=== PATIENT | male | born 1935 | race Caucasian/White ===

== ENCOUNTER 2020-09-12 15:56 | Inpatient (IN) | payer MEDICARE, OTHER ==
[~2020-09-12] VITALS: Ht 157.5 cm; Wt 68.0 kg
[2020-09-12 17:12] LABS: HEMOGLOBIN 14.8 gm/dl (14.0-17.5); RED BLOOD COUNT 4.39 M/UL (4.20-5.50); WHITE BLOOD COUNT 6.7 K/UL (4.5-11.0)
[2020-09-13 04:07] LABS: HEMOGLOBIN 13.6 gm/dl (14.0-17.5); RED BLOOD COUNT 4.01 M/UL (4.20-5.50); WHITE BLOOD COUNT 6.1 K/UL (4.5-11.0)
[2020-09-13] MEDS ORDERED: BREO ELLIPTA 11 EACH PO (10:31)
[2020-09-13] MEDS ORDERED: LEVOTHYROXINE75 MCG PO (10:32)
[2020-09-13] MEDS ORDERED: PRAVASTATIN SOD40 MG PO (10:32)
[2020-09-13] MEDS ORDERED: ASPIRIN EC81 MG PO (10:33)
[2020-09-13] MEDS ORDERED: FLOMAX 0.4 MG0.4 MG PO (10:33)
[2020-09-13] MEDS ORDERED: ISOSORBIDE MONO30 MG PO (10:34)
[2020-09-13] MEDS ORDERED: DOCUSATE SODIU100 MG PO (10:36)
[2020-09-13] MEDS ORDERED: VITAMIN C250 MG PO (10:37)
[2020-09-13] MEDS ORDERED: ARTHRITIS PAIN650 M1 PO (10:37)
--- NOTE | 2020-09-14 02:20 | NUR ---
PHAMRACY MADE AWARE OF ZITHROMAX BEING ADMINISTERED 4 HOURS LATE. PHAMRACIST TOMASZ STATED NO NEED TO ADJUST FUTURE ADMINISTRATION TIMES. WCTM
[2020-09-14 04:16] LABS: HEMOGLOBIN 13.9 gm/dl (14.0-17.5); RED BLOOD COUNT 4.23 M/UL (4.20-5.50); WHITE BLOOD COUNT 10.4 K/UL (4.5-11.0)
[2020-09-16 05:05] LABS: HEMOGLOBIN 14.1 gm/dl (14.0-17.5); RED BLOOD COUNT 4.18 M/UL (4.20-5.50)
[2020-09-16 05:13] LABS: WHITE BLOOD COUNT 7.3 K/UL (4.5-11.0)
[2020-09-16 05:26] LABS: BUN/CREATININE RATIO 34 (0-10)
--- NOTE | 2020-09-16 10:01 | NUR ---
1000 ATTEMPTED TO CALL FAMILY BACK NO ANSWER
[2020-09-17 05:12] LABS: HEMOGLOBIN 14.2 gm/dl (14.0-17.5); RED BLOOD COUNT 4.28 M/UL (4.20-5.50); WHITE BLOOD COUNT 8.7 K/UL (4.5-11.0)
[2020-09-17 05:31] LABS: BUN/CREATININE RATIO 34 (0-10)
[2020-09-18 05:24] LABS: HEMOGLOBIN 14.3 gm/dl (14.0-17.5); RED BLOOD COUNT 4.28 M/UL (4.20-5.50); WHITE BLOOD COUNT 8.9 K/UL (4.5-11.0)
--- NOTE | 2020-09-18 21:41 | NUR ---
UPDATED PT DAUGHTER VIA PHONE. PT DAUGHTER AWARE OF CURRENT POC, VS, AND WAIT FOR ICU BED AT [facility]. ALL QUESTIONS ANSWERED.
--- NOTE | 2020-09-18 22:06 | NUR ---
[facility] CALLED STATING THERE IS STILL NOT AN OPEN BED FOR PT. REPORTS SHE WILL CALL AGAIN THROUGH THE NIGHT WITH UPDATES.
[2020-09-19 05:03] LABS: HEMOGLOBIN 13.7 gm/dl (14.0-17.5); RED BLOOD COUNT 4.15 M/UL (4.20-5.50); WHITE BLOOD COUNT 7.5 K/UL (4.5-11.0)
[2020-09-19 05:23] LABS: BUN/CREATININE RATIO 39 (0-10)
--- NOTE | 2020-09-19 05:57 | NUR ---
[facility] CALLED, STILL NO BED AVAILABLE AT [facility].
--- NOTE | 2020-09-19 06:05 | NUR ---
CALLED AND UPDATED PT DAUGHTER ON POC, CURRENT LABS, VS, BIPAP SETTINGS, AND WAIT STATUS AT [facility]. ALL QUESTIONS ANSWERED.
--- NOTE | 2020-09-19 10:34 | NUR ---
DR PATTERSON NOTIFIED OF ABG RESULTS, NEW ORDERS RECEIVED
--- NOTE | 2020-09-19 22:37 | NUR ---
2029 ATTEMPTED TO CALL PT DAUGHTER TO UPDATE. NO ANSWER. 2099 PT RHYTHM CHANGED FROM NSR TO TACHY BIGEMINY, BP 92/48. DAVID NOTIFIED AND AWARE. EKG OBTAINED. ORDERS RECEIVED FOR 500ML NS BOLUS AND MAG LEVEL TO BE CHECKED. ORDERS PLACED.
--- NOTE | 2020-09-20 05:24 | NUR ---
09/19 2200 SPOKE WITH [facility], NO BED AVAILABLE YET. 09/20 0430 SPOKE WITH [facility], NO BED AVAILABLE.
--- NOTE | 2020-09-20 05:54 | NUR ---
0550 CALLED AND UPDATED PT DAUGHTER ON POC, VS, CURRENT VENT SETTINGS, AND WAIT TIME FOR BED AT [facility]. ALL QUESTIONS ANSWERED.
[2020-09-21 05:16] LABS: HEMOGLOBIN 13.9 gm/dl (14.0-17.5); RED BLOOD COUNT 4.16 M/UL (4.20-5.50)
[2020-09-21 05:17] LABS: WHITE BLOOD COUNT 15.7 K/UL (4.5-11.0)
[2020-09-21 05:40] LABS: BUN/CREATININE RATIO 37 (0-10)
== END 2020-09-21 16:30 | disposition short-term general hospital (02) | DRG 208 ==
LOC: ER1 15:56 → CCU 19:15 → M/S 19:15 → CDU 19:15 → PROG CARE 09-13 10:58 → M/S 09-13 19:39 → PROG CARE 09-15 13:59 → CCU 09-15 23:40
PROVIDERS: Internal Medicine; Internal Medicine Pulmonary Disease; Physician Assistant; ADMIT Internal Medicine
PROC: 5A0945A Assistance with Respiratory Ventilation, 24-96 Consecutive Hours, High Flow/Velocity Cannula (ICD-10-PCS; 2020-09-12)
PROC: 8E0ZXY6 Isolation (ICD-10-PCS; 2020-09-12)
PROC: XW033E5 Introduction of Remdesivir Anti-infective into Peripheral Vein, Percutaneous Approach, New Technology Group 5 (ICD-10-PCS; 2020-09-12)
PROC: 3E0333Z Introduction of Anti-inflammatory into Peripheral Vein, Percutaneous Approach (ICD-10-PCS; 2020-09-12)
PROC: XW033H5 Introduction of Tocilizumab into Peripheral Vein, Percutaneous Approach, New Technology Group 5 (ICD-10-PCS; 2020-09-12)
PROC: XW13325 Transfusion of Convalescent Plasma (Nonautologous) into Peripheral Vein, Percutaneous Approach, New Technology Group 5 (ICD-10-PCS; 2020-09-12)
PROC: 5A09457 Assistance with Respiratory Ventilation, 24-96 Consecutive Hours, Continuous Positive Airway Pressure (ICD-10-PCS; 2020-09-17)
PROC: 5A1945Z Respiratory Ventilation, 24-96 Consecutive Hours (ICD-10-PCS; principal; 2020-09-19)
PROC: 0BH17EZ Insertion of Endotracheal Airway into Trachea, Via Natural or Artificial Opening (ICD-10-PCS; 2020-09-19)
DX: U07.1 COVID-19 (principal); J12.82 Pneumonia due to coronavirus disease 2019; J96.21 Acute and chronic respiratory failure with hypoxia; G93.41 Metabolic encephalopathy; J15.8 Pneumonia due to other specified bacteria; N17.9 Acute kidney failure, unspecified; F02.80 Dementia in other diseases classified elsewhere, unspecified severity, without behavioral disturbance, psychotic disturbance, mood disturbance, and anxiety; E78.5 Hyperlipidemia, unspecified; E03.9 Hypothyroidism, unspecified; D69.6 Thrombocytopenia, unspecified; N18.9 Chronic kidney disease, unspecified; N18.30 Chronic kidney disease, stage 3 unspecified; I12.9 Hypertensive chronic kidney disease with stage 1 through stage 4 chronic kidney disease, or unspecified chronic kidney disease; E78.00 Pure hypercholesterolemia, unspecified; E11.22 Type 2 diabetes mellitus with diabetic chronic kidney disease; R26.9 Unspecified abnormalities of gait and mobility; E86.0 Dehydration; I48.91 Unspecified atrial fibrillation; R47.1 Dysarthria and anarthria; G20 Parkinson's disease; Z79.82 Long term (current) use of aspirin; Z79.4 Long term (current) use of insulin; Z79.01 Long term (current) use of anticoagulants; Z98.42 Cataract extraction status, left eye; Z98.41 Cataract extraction status, right eye; Z93.1 Gastrostomy status
CPT/HCPCS: ECHO; 0240U; 31500; 36415; 36600; 70450; 71045; 74018; 80048; 80053; 82550; 82553; 82728; 82803; 82962; 83036; 83605; 83735; 83874; 83880; 84484; 85025; 86140; 87040; 87070; 87077; 87086; 87186; 87205; 92526; 92610; 93005; 93306; 94002; 94003; 94640; 94660; 94664; 94760; 96374; 99285; C1751; C9113; G0378; J0330; J0360; J0456; J0696; J1100; J1650; J2060; J2185; J2704; J3486; J7030; J7040